=== PATIENT | female | born 1955 | race Caucasian/White ===

== ENCOUNTER 2018-02-10 14:14 | Outpatient (REF) | payer BC, SELFPAY ==
[2018-02-10 16:10] LABS: BUN 20 mg/dL (7-18); CREATININE 0.93 mg/dL (0.55-1.02); Chloride 106 mmol/L (98-107); Cholesterol 234 mg/dL (50-200); Glucose 92 mg/dL (70-100); HDL Cholesterol 60 mg/dL (40-60); LDL CHOLESTEROL 164 mg/dL (<100); Potassium 4.2 mmol/L (3.5-5.1); Sodium 142 mmol/L (136-145); Triglyceride 70 mg/dL (30-150)
== END 2018-02-10 14:34 ==
LOC: NCHCN 14:14
PROVIDERS: PCP Internal Medicine; Visit Provider Family Medicine
DX: Z00.00 Encounter for general adult medical examination without abnormal findings (principal); E78.5 Hyperlipidemia, unspecified
CPT/HCPCS: 80048; 80061; 83721

== ENCOUNTER 2019-03-09 08:43 | Outpatient (REF) | payer BC, SELFPAY ==
[2019-03-09 12:38] LABS: Anion Gap 8.4 mmol/L (3-11); BUN 17 mg/dL (7-18); CO2 27.6 mmol/L (21.0-32.0); CREATININE 0.86 mg/dL (0.55-1.02); Calcium 8.7 mg/dL (8.5-10.1); Chloride 107 mmol/L (98-107); FREE T4 1.13 ng/dL (0.76-1.46); Glucose 94 mg/dL (70-100); Potassium 4.3 mmol/L (3.5-5.1); Sodium 143 mmol/L (136-145); TSH 2.39 uIU/mL (0.36-3.74)
== END 2019-03-09 09:03 ==
LOC: NCHCN 08:43
PROVIDERS: PCP Internal Medicine; Visit Provider Internal Medicine
DX: Z00.00 Encounter for general adult medical examination without abnormal findings (principal); I10 Essential (primary) hypertension; E03.9 Hypothyroidism, unspecified
CPT/HCPCS: 80048; 84439; 84443

== ENCOUNTER 2020-01-31 10:16 | Outpatient (REF) | payer BC, SELFPAY ==
[2020-01-31 21:25] LABS: Anion Gap 8.4 mmol/L (3-11); BUN 15 mg/dL (7-18); CO2 28.6 mmol/L (21.0-32.0); CREATININE 0.82 mg/dL (0.55-1.02); Calcium 9.1 mg/dL (8.5-10.1); Chloride 104 mmol/L (98-107); FREE T4 1.15 ng/dL (0.76-1.46); Glucose 89 mg/dL (74-106); Sodium 141 mmol/L (136-145); TSH 2.28 uIU/mL (0.36-3.74)
== END 2020-01-31 10:36 ==
LOC: NCHCN 10:16
PROVIDERS: PCP Internal Medicine; Visit Provider Internal Medicine
DX: I10 Essential (primary) hypertension (principal); E03.9 Hypothyroidism, unspecified; Z00.00 Encounter for general adult medical examination without abnormal findings; M72.2 Plantar fascial fibromatosis; F34.1 Dysthymic disorder
CPT/HCPCS: 80048; 84439; 84443

== ENCOUNTER 2021-01-29 14:43 | Outpatient (REF) | payer BC, SELFPAY ==
[2021-01-29 16:07] LABS: Anion Gap 9.7 mmol/L (3-11); BUN 15 mg/dL (7-18); CO2 28.3 mmol/L (21.0-32.0); CREATININE 0.9 mg/dL (0.55-1.02); Calcium 9.4 mg/dL (8.5-10.1); Chloride 108 mmol/L (98-107); Glucose 94 mg/dL (74-106); Potassium 4.7 mmol/L (3.5-5.1); Sodium 146 mmol/L (136-145); TSH 3.68 uIU/mL (0.36-3.74)
[2021-01-29 16:48] LABS: FREE T4 1.02 ng/dL (0.76-1.46)
== END 2021-01-29 14:44 | disposition home or self-care (01) ==
LOC: NCHCN 14:43
PROVIDERS: PCP Internal Medicine; Visit Provider Internal Medicine
DX: I10 Essential (primary) hypertension (principal); E03.9 Hypothyroidism, unspecified
CPT/HCPCS: 80048; 84439; 84443

== ENCOUNTER 2022-02-26 19:03 | Outpatient (REF) | payer MEDICARE, BC, SELFPAY ==
[2022-02-26 14:21] LABS: HCT 39.5 % (36.0-46.0); MCHC 32.9 % (32.0-36.0); MCV 88 fL (80-95); MPV 10.6 fL (8.0-11.0); Platelet Count 222 10^3/uL (130-400); RBC 4.49 10^6/uL (3.93-5.22); RDW 13.2 % (11.7-14.6); WBC 7.53 10^3/uL (4.4-10.8)
[2022-02-26 15:00] LABS: ALT 23 U/L (14-59); AST 17 U/L (15-37); Albumin 4.1 g/dL (3.4-5.0); Alkaline Phosphatase 95 U/L (46-116); Anion Gap 8.8 mmol/L (3-11); BUN 16 mg/dL (7-18); Bilirubin, Total 0.6 mg/dL (0.2-1.0); CO2 28.2 mmol/L (21.0-32.0); Calcium 9.5 mg/dL (8.5-10.1); Calculated LDL 155 mg/dL (<100); Chloride 106 mmol/L (98-107); Cholesterol 229 mg/dL (<200); Estimated GFR 62.13 (mL/min/1.73m2); Glucose 93 mg/dL (74-106); HDL Cholesterol 58 mg/dL (40-60); Potassium 4.7 mmol/L (3.5-5.1); Sodium 143 mmol/L (136-145); Total Protein 7.7 g/dL (6.4-8.2); Triglyceride 82 mg/dL (<150)
== END 2022-02-26 19:04 | disposition home or self-care (01) ==
LOC: NCHCN 19:03
PROVIDERS: PCP Internal Medicine; Visit Provider Family Medicine
DX: I10 Essential (primary) hypertension (principal); E78.5 Hyperlipidemia, unspecified; E03.9 Hypothyroidism, unspecified
CPT/HCPCS: 80053; 80061; 85027

== ENCOUNTER 2023-03-11 16:16 | Outpatient (REF) | payer MEDICARE, BC, SELFPAY ==
[2023-03-11 14:53] LABS: Anion Gap 7.5 mmol/L (3-11); BUN 18 mg/dL (7-18); CO2 27.5 mmol/L (21.0-32.0); Calcium 9.8 mg/dL (8.5-10.1); Chloride 105 mmol/L (98-107); Estimated GFR 61.75 (mL/min/1.73m2); Glucose 100 mg/dL (74-106); Potassium 4.3 mmol/L (3.5-5.1); Sodium 140 mmol/L (136-145)
== END 2023-03-11 16:17 | disposition home or self-care (01) ==
LOC: NCHCN 16:16
PROVIDERS: PCP Internal Medicine; Visit Provider Family Medicine
DX: I10 Essential (primary) hypertension (principal)
CPT/HCPCS: 80048

== ENCOUNTER → 2023-07-14 16:36 | Outpatient (CLI) | payer MEDICARE, BC, SELFPAY ==
--- NOTE | 2023-07-14 14:00 | DI.RAD_ITS ---
Exam(s) XR KNEE LT 4V AP,LAT,ALISHA,PAT EXAM: XR KNEE LT 4V AP,LAT,ALISHA,PAT CLINICAL HISTORY: evaluate pathology M25.562 PAIN LEFT KNEE. TECHNIQUE: 2D digital imaging was performed. Three views. COMPARISON: No exams were available for comparison FINDINGS: BONES: No acute fracture is present. No bony destructive lesion is seen. Enthesophyte at quadriceps insertion. JOINTS: The knee is normally aligned. No joint effusion is seen. Joint spaces are maintained. Mild p eriarticular spurring SOFT TISSUE: Normal. IMPRESSION: Mild degenerative changes. DATA REPOSITORY: RADIATION DOSE DELIVERED:
== END ==
PROVIDERS: PCP Family Medicine; Visit Provider Nurse Practitioner Family
DX: M25.562 Pain in left knee (principal)
CPT/HCPCS: 73564

== ENCOUNTER 2023-07-14 19:06 | Outpatient (CLI) | payer MEDICARE, BC, SELFPAY ==
[2023-07-14 15:51] LABS: D-Dimer 299 ng/mlFEU (<500)
== END 2023-07-14 19:07 | disposition home or self-care (01) ==
LOC: LBO 19:07
PROVIDERS: PCP Family Medicine; Visit Provider Nurse Practitioner Family
DX: M25.562 Pain in left knee (principal)
CPT/HCPCS: 36415; 73564; 85379

== ENCOUNTER → 2023-08-11 12:56 | Outpatient (BNVA) | payer MEDICARE, BC, SELFPAY | PROVIDERS: PCP Family Medicine; Referring Provider Family Medicine | DX: M23.92 Unspecified internal derangement of left knee (principal) | CPT/HCPCS: 99203 ==

== ENCOUNTER → 2023-10-13 02:08 | Outpatient (CLI) | payer MEDICARE, BC, SELFPAY ==
--- NOTE | 2023-10-13 07:45 | DI.MRI_ITS ---
Exam(s) MR LOWER JOINT LT WO EXAM: MR LOWER JOINT LT WO CLINICAL HISTORY: PAIN,INTERNAL DERANGEMENT LT KNEE, M23.92. TECHNIQUE: Multiplanar multisequence MRI was performed. COMPARISON: CR XR KNEE LT 4V AP,LAT,ALISHA,PAT from 07/14/2023 FINDINGS: BONES: There is no fracture or contusion pattern. JOINTS: A moderate-sized joint effusion is present. Articular cartilage: Patellofemoral joint: Diffuse thinning cartilage extending down to bone. Mild periarticular spurring. Medial femoral tibial joint: Irregular cartilage thinning extending down to bone. Mild underlying m arrow edema. Lateral femoral tibial joint: Articular cartilage is unremarkable. TENDONS: Extensor mechanism: Unremarkable. Medial retinaculum: Unremarkable. Lateral retinaculum: Unremarkable. Popliteus: Unremarkable. MUSCLES: Unremarkable. MENISCI: The medial meniscus is somewhat PLIF early displaced. There is horizontal linear high signal. There is an additional radial tear suture seen posteriorly near the root. The lateral meniscus is unremarkable. SOFT TISSUES: Small multiloculated Stone's cyst. Mild anterior subcutaneous edema. Synovial cysts s een posterior to the distal femur. Loculated fluid seen deep to iliotibial band. LIGAMENTS: Anterior Cruciate: Unremarkable. Posterior Cruciate: Unremarkable. Medial Collateral:Surrounding edema. No visible tear. Lateral Collateral: No evidence of tear. Multiloculated fluid collection seen deep to iliotibial ban d. IMPRESSION: Horizontal tear of the body and posterior horn of the medial meniscus. Additional radial tear at the posterior meniscal root. Degenerative changes of the patellofemoral joint medial femoral tibial joint. Joint effusion. Loculated fluid deep to the iliotibial band. Small Stone's cyst. DATA REPOSITORY:
== END ==
PROVIDERS: PCP Family Medicine; Visit Provider Student in an Organized Health Care Education/Training Program
DX: M23.322 Other meniscus derangements, posterior horn of medial meniscus, left knee (principal)
CPT/HCPCS: 73721

== ENCOUNTER → 2023-12-01 13:54 | Outpatient (BNVA) | payer MEDICARE, BC, SELFPAY | PROVIDERS: PCP Family Medicine; Referring Provider Family Medicine; Visit Provider Student in an Organized Health Care Education/Training Program | DX: S83.242A Other tear of medial meniscus, current injury, left knee, initial encounter (principal); X58.XXXA Exposure to other specified factors, initial encounter; M17.12 Unilateral primary osteoarthritis, left knee | CPT/HCPCS: 99213 ==

== ENCOUNTER → 2024-01-01 13:14 | Outpatient (BNVA) | payer MEDICARE, BC, SELFPAY | PROVIDERS: PCP Family Medicine; Referring Provider Family Medicine; Visit Provider Physical Therapy Assistant | DX: Z12.11 Encounter for screening for malignant neoplasm of colon (principal) ==

== ENCOUNTER 2024-01-06 06:14 | Day surgery (SDC) | payer MEDICARE, BC, SELFPAY ==
--- NOTE | 2024-01-05 12:41 | W.COLOREPORT ---
Date of service: 01/06/24 Time of Service: 09:31 Colonoscopy Report Date of procedure: 01/06/24 Pre-op diagnosis general: CRC screening Post-op diagnosis procedure note: other (Normal) Surgeon: Kelsey Lee Anesthesia Type: General:No Airway Estimated blood loss (mL): 0 Pathology: none sent Complications: None Disposition: same day Prep: Miralax/Dulcolax Retraction Time: 7 Procedure Description: After informed consent was obtained, explaining risks of the procedure, including but not limits to: bleeding, infections, complications of anesthesia, perforations (which may require antibiotics and /or surgery and stay in the hospital), and abdominal pain/cramping. The patient was taken to the procedure room and placed in a left decubitous position. Monitors were applied and a time out was done. The patients name, date of , procedure, allergies to medications and metal in their body was reviewed. The patient was then sedated. Once sedated and comfortable a rectal exam was done. External exam was normal. Internal exam revealed a normal sphincter tone and no palpable masses. The previously lubricated Olympus scope was then introduced (see RN notes for scope number) and retrofelexed. No internal hemorrhoids were identified. The colon was noted to be very tortuous. The scope was then advanced to the cecum without difficulty. The TI and appendiceal orifice were identified. The scope was then slowly retracted over 7 minutes back into the rectum. Polyps: No. Diverticula: NO. The mucosa is pink and healthy w/ a normal vascular pattern. The scope was removed, and the patient was woken up and taken back to Same day surgery in stable condition. The patient tolerated the procedure well and there were no immediate complications. Follow up: The patient does not require any further routine screening colonoscopies, unless they develop changes in bowel habits or other new gastrointestinal complaints. [place] Bowel Prep Kil[place]ore Bowel Prep Right Colon: 3 Left Colon: 3 Transverse Colon: 3 Total Score: 9
--- NOTE | 2024-01-05 12:41 | W.PM.DSUDISC ---
Date of service: 01/06/24 Time of Service: 08:46 Discharge Plan Disposition Patient Disposition: Home Condition: Good Discharge Details Reason For Visit: Colon cancer screening Attending Provider: Kelsey Lee Primary Care Provider: Tony Castellanos Home Meds and New Rx's Prescriptions: Continued losartan 50 mg tablet 50 mg PO DAILY acetaminophen [Tylenol Ex Str Arthritis Pain] 500 MG tablet 500 mg PO PRN levothyroxine [Synthroid] 75 mcg tablet 88 mcg PO DAILY Discontinued bisacodyl [Dulcolax (bisacodyl)] 5 mg tablet,delayed release (DR/EC) 5 mg PO ONCE Qty: 4 0RF Rx Instructions: Take per colonoscopy instructions provided by ordering providers office polyethylene glycol 3350 17 gram/dose powder 17 g PO ONCE Qty: 238 0RF Rx Instructions: Take per colonoscopy instructions provided by ordering providers office No Action calcium carbonate-vitamin D3 [Calcium 600 + D(3)] 600 mg-5 mcg (200 unit) tablet 1 tab PO DAILY Discharge Instructions Additional Instructions: DSU Colonoscopy Post-Op Instructions Instructions for Everyone who is given Anesthesia: For your safety, please do the following for the next twenty-four (24) hours: *Do Not operate a motor vehicle (car, truck, motorcycle, etc.) *Do Not drink alcoholic beverages or use any recreational drugs for the first 24 hours or while taking pain medications. The medications in your body may have a reaction that can be dangerous. *Do Not make any important decisions or sign any important papers. Findings: Normal colon Follow up: No further routine colonoscopies advised at this time. Of course, you should continue to have a yearly physical exam including a rectal exam. If you should ever notice any pain or difficulty having a bowel movement, blood in the stool, unexplained weight loss, or change in your bowel habits, please contact your health provider 1. No lifting over 20 pounds or strenuous activity for the first 24 hours after your procedure. After 24 hours there are no restrictions on your activity but you may feel fatigued for a few days. 2. After you arrive home you may have a light meal and return to your normal diet as you can tolerate it without feeling sick to your stomach. 3. You may have a bloated, gaseous feeling in your belly (abdomen) after a colonoscopy. Passing gas and belching will help. Walking or lying down on your left side with your knees flexed may relieve the discomfort. Call the office at [phone] (Office) or [phone] (Hospital) right away if you notice any of the following: a.Vomiting of blood or ?coffee ground stools?. b.Rectal bleeding 1Tbsp, blood clots or continuous bleeding. c.Severe belly (abdominal) pain. d.A hard distended belly (abdomen) and an inability to pass gas. 4. Please don?t expect to have a normal BM (bowel movement) for 2-3 days after your procedure. 5. If there are questions regarding the findings of your procedure, please contact your doctor 6. If you are unable to contact your doctor with a problem, contact the hospital at [phone]. 7. Continue all your regular medications unless directed otherwise. I understand the above instructions and have no questions. Signature of Patient or Adult Escort Name of Responsible Adult Escort Signature of Nurse Date/Time Activity:: see baove Diet:: see above Discharge Orders Discharge Orders: Discharge Order (Routine); Ordered 01/06/24 Ordered By: Kelsey Lee DS: Diagnosis Discharge Diagnosis (1) Osteoarthritis of left knee: Status: Acute (2) Hypertension: (3) Raynauds phenomenon: (4) Hyperlipidemia: (5) Hypothyroidism: (6) Sleep apnea, obstructive: (7) Screening for malignant neoplasm of colon performed: Status: Acute Asessment and Plan: The patient is seen and examined after their colonoscopy.? The patient has been able to pass gas.? They are not having abdominal pain.? They have been able to tolerate liquids and a snack.? They do not have any nausea or vomiting.? They are not having any chest pain or shortness of breath.??? They are not having any rectal bleeding. Their vital signs have been stable-see nursing notes. We discussed findings during their colonoscopy, and any biopsies that were done/polyps that were removed. The patient will be sent a letter with any biopsy results, and when to repeat the colonoscopy.-see discharge instructions. Patient was given explicit instructions to follow-up regarding colonoscopy-refer to discharge instructions.? We reviewed resumption of medications. Patient verbalized understanding and discharged in stable and satisfactory condition- See nursing notes.
--- NOTE | 2024-01-06 05:56 | W.ANESPRE ---
General Info Date of Service Date Performed: 01/06/24 Height: 5 ft 4 in Weight: 73.936 kg Body Mass Index (BMI): 27.9 Surgical Procedure: Operation Date: 01/06/24 07:35 Proposed Procedure Side Surgeon pietro Lee, DO Meds Allergies and Home Medications Allergies Allergy/AdvReac Type Severity Reaction Status Date / Time erythromycin base Allergy Severe Other (See Verified 01/06/24 06:35 Comment) ERTHROMYCIN Allergy Unknown Other (See Uncoded 01/06/24 06:35 Comment) Home Medication ?Medication ?Instructions ?Recorded acetaminophen 500 mg tablet 500 mg PO PRN 12/08/12 (Tylenol Ex Str Arthritis Pain) losartan 50 mg tablet 50 mg PO DAILY 07/14/23 levothyroxine 75 mcg tablet 88 mcg PO DAILY 01/01/24 (Synthroid) calcium carbonate 600 mg-vitamin 1 tab PO DAILY 01/05/24 D3 5 mcg (200 unit) tablet (Calcium 600 + D(3)) Current Visit Medications: Current Medications Generic Name Dose Route Start Last Admin Trade Name Freq PRN Reason Stop Dose Admin Hyoscyamine Sulfate 0.125 mg 01/06/24 00:40 Hyoscyamine 0.125 Mg Sl/Oral/Chew SL 02/05/24 00:39 DIRECTED PRN Ringer's Solution 1,000 mls @ 80 mls/hr 01/06/24 06:00 IV 01/06/24 23:59 INFUSION SAHRA IV Miscellaneous Supplies 1 each 01/06/24 06:00 Iv Access IV 01/06/24 23:59 DIRECTED SAHRA Ondansetron HCl 4 mg 01/06/24 00:40 Ondansetron 4 Mg/2 Ml Vial IVP 02/05/24 00:39 Q4H PRN PRN Nausea / Vomiting Sodium Chloride 0 ml 01/06/24 06:00 Normal Saline Flush 10 Ml Syr IV 01/06/24 23:59 PRN PRN Sodium Chloride 0 ml 01/06/24 06:00 Normal Saline 10 Ml Vial IJ 01/06/24 23:59 DIRECTED PRN Sterile Water 0 ml 01/06/24 06:00 Water,Injection,Sterile 10 Ml Vial IJ 01/06/24 23:59 DIRECTED PRN PFSH Active Problems Active Problems: Problem Status Onset Code Screening for malignant neoplasm of colon performed Acute Z12.11 Osteoarthritis of left knee Acute M17.12 Acute medial meniscus tear of left knee Acute S83.242A Internal derangement of left knee Acute M23.92 Medical History Medical History (Updated 01/06/24 @ 06:39 by Lesli Hartman) Hx of osteoporosis Olfactory hallucinations (12/15/12) Hallux valgus Sleep apnea, obstructive mild Hypothyroidism multinodular Raynauds phenomenon Nonexertional chest pain Pt. states she had this worked up and nothing ever came of it Hyperlipidemia Hypertension Ceruminosis Surgical History Surgical History (Updated 01/06/24 @ 06:39 by Lesli Hartman) Hx of tonsillectomy Hx of dilation and curettage Hx of section Tobacco Smoking/Tobacco Use Status: Never Alcohol Alcohol Intake: never Substance Use Substance use: Never Substance use type: does not use Vital Signs and Lab Results Vital Signs Most Recent Vital Signs in EMR: Temp Pulse Resp BP Pulse Ox 36.5 C 69 18 132/74 98 01/06/24 06:42 01/06/24 06:42 01/06/24 06:42 01/06/24 06:42 01/06/24 06:42 Lab Results Blood Type / Crossmatch: No Data to Display Complete Blood Count: No Data to Display Complete Metabolic Panel: No Data to Display Liver Function Panel: No Data to Display Coagulation Panel: No Data to Display Cardiac Panel: No Data to Display Arterial Blood Gas: No Data to Display Venous Blood Gas: No Data to Display Pancreas Panel: No Data to Display Thyroid Panel: No Data to Display Infectious Disease: No Data to Display Blood Cultures: No Data to Display Toxicology Panel: No Data to Display Imaging and Studies Imaging and Studies Study information below may be from another EMR and interpreted by another provider. Please see original notes in EMR for more complete details. Stress Test Summary: 07/19/16 Impressions: Normal study after maximal exercise. Anesthesia Assessment and Plan Anesthesia History Personal History: No History of Anesthesia Complications and PONV Family History: Family History Unknown Exercise Tolerance Exercise Tolerance: Metabolic Equivalents>4 Pertinent Negatives Pertinent Negatives: No Major Cardiovascular Symptoms or Complaints and No Major Pulmonary Symptoms or Complaints Cardiac & Pulmonary Exam Cardiac Exam: Normal S1/S2 Heart Sounds Pulmonary Exam: Clear Bilateral Breath Sounds Implantable Cardiac Device Does patient have a Pacemaker or an ICD?: No Airway Exam Known Difficult Airway: No Mallampati Class: 2 Mouth Opening: Normal (> 3cm) Thyromental Distance: Greater than 3 cm Neck Range of Motion: Full ROM Neck Circumference: Normal Teeth Condition: Normal Dentition ASA Classification ASA Score: ASA 2 Emergency Case?: No NPO Status NPO Status: NPO Clears >2 hours, Solids >8 hours Anesthesia Plan Resuscitation Status: Full Code Anesthesia Technique: General Anesthesia Airway Planned: Natural Airway Monitors Used: Standard Monitors Preoperative Comments:: 68 y/o female with history of DAVID, hypothyroidism, HTN and HLD presents for colonoscopy
[2024-01-06 06:42] VITALS: BP 132/74; PULSE 69; RESP 18; TEMP 36.5; O2SAT 98
[2024-01-06 07:06] VITALS: BMI 27.9
[2024-01-06] MEDS: Lactated Ringers 1,000 ML 80 ML IV (07:30)
[2024-01-06 08:28] VITALS: BP 123/72; PULSE 65; RESP 20; TEMP 36.5; O2SAT 98
[2024-01-06 08:54] VITALS: BP 123/67; PULSE 61; RESP 18; TEMP 36.3; O2SAT 100
--- NOTE | 2024-01-06 09:05 | W.ANESPOSTOP ---
Postoperative Evaluation Date, Time and Location Date Performed: 01/06/24 Time Performed: 08:46 Patient Location: Day Surgery Unit Vital Signs Most Recent Imported Vital Signs: Most Recent Vital Signs Temp Pulse Resp BP Pulse Ox 36.5 C 65 20 123/72 98 01/06/24 08:28 01/06/24 08:28 01/06/24 08:28 01/06/24 08:28 01/06/24 08:28 Pain Score Most Recent Pain Score: Most Recent Pain Score Pain Level 0 01/06/24 08:28 Assessment Mental Status: Awake (Alert & Oriented to Patient Baseline) Airway and Respiratory Function: Patent airway with normal (patient baseline) respiratory exam Cardiovascular Function: Hemodynamically Stable Hydration Status: Adequately Hydrated Nausea & Vomiting: No Nausea or Vomiting Pain: Pt. Denies Any Pain Peripheral Nerve Block: Patient did not receive a nerve block
[2024-01-06] MEDS: Acetaminophen 500 MG TAB PO (09:42)
== END 2024-01-06 10:03 | disposition home or self-care (01) ==
LOC: SUR 06:15
PROVIDERS: PCP Family Medicine; Visit Provider Surgery
PROC: 0DJD8ZZ Inspection of Lower Intestinal Tract, Via Natural or Artificial Opening Endoscopic (ICD-10-PCS; CPT 45378; principal; 2024-01-06 07:30)
DX: Z12.11 Encounter for screening for malignant neoplasm of colon (principal); I10 Essential (primary) hypertension; G47.33 Obstructive sleep apnea (adult) (pediatric)
CPT/HCPCS: G0121; J2001; J2405; J2704

== ENCOUNTER 2024-04-06 23:59 | Outpatient (REF) | payer MEDICARE, BC, SELFPAY ==
[2024-04-06 15:01] LABS: ALT 22 U/L (14-59); AST 16 U/L (15-37); Albumin 4.1 g/dL (3.4-5.0); Alkaline Phosphatase 97 U/L (46-116); Anion Gap 9.3 mmol/L (3-11); BUN 27 mg/dL (7-18); Bilirubin, Total 0.73 mg/dL (0.2-1.0); CO2 29.7 mmol/L (21.0-32.0); CREATININE 1.1 mg/dL (0.55-1.02); Calcium 9.9 mg/dL (8.5-10.1); Calculated LDL 139 mg/dL (<100); Chloride 107 mmol/L (98-107); Cholesterol 212 mg/dL (<200); Estimated GFR 54.73 (mL/min/1.73m2); Glucose 94 mg/dL (74-106); HDL Cholesterol 62 mg/dL (40-60); Potassium 4.9 mmol/L (3.5-5.1); Sodium 146 mmol/L (136-145); TSH (W/Ref FT4) 2.15 uIU/mL (0.36-3.74); Total Protein 7.7 g/dL (6.4-8.2); Triglyceride 55 mg/dL (<150)
== END 2024-04-07 | disposition home or self-care (01) ==
LOC: NCHCN 23:59
PROVIDERS: PCP Family Medicine; Visit Provider Family Medicine
DX: I10 Essential (primary) hypertension (principal)
CPT/HCPCS: 80053; 80061; 84443